=== PATIENT | female | born 1955 | race Caucasian/White ===

== ENCOUNTER 2018-04-17 16:31 | Emergency (ER) | payer OTHER ==
--- NOTE | 2018-04-17 17:54 | ED ---
Lower Extremity - HPI Summary HPI Summary: 62-year-old female presents with left ankle injury today. States she was hiking and she tripped. She has an abrasion on her face into her right knee. Pain mostly is in her left ankle. She denies chest pain or shortness breath. Fall was mechanical fall. She is not on blood thinners. No nausea and no vomiting. No loss conscious. No loose teeth. No neck pain or back pain. No chest pain or shortness breath. She denies any other injury. She is still able ambulate on the ankle. She has no medical conditions. - History of Current Complaint Chief Complaint: EDExtremityLower Stated Complaint: ANKLE PAIN Time Seen by Provider: 04/17/18 17:35 Pain Intensity: 6 - Allergies/Home Medications Allergies/Adverse Reactions: Allergies Allergy/AdvReac Type Severity Reaction Status Date / Time No Known Allergies Allergy Verified 04/17/18 16:38 PMH/Surg Hx/FS Hx/Imm Hx Endocrine/Hematology History: Denies: Hx Anticoagulant Therapy Cardiovascular History: Denies: Hx Myocardial Infarction Infectious Disease History: No Infectious Disease History: Denies: Traveled Outside the [place] in Last 30 Days - Family History Known Family History: Negative: Blood Disorder - Social History Alcohol Use: Occasionally Substance Use Type: Reports: None Review of Systems Negative: Fever Negative: Chest Pain Negative: Shortness Of Breath Positive: Myalgia - left ankle pain Positive: Other - abrasion All Other Systems Reviewed And Are Negative: Yes Physical Exam Triage Information Reviewed: Yes Vital Signs On Initial Exam: Initial Vitals Temp Pulse Resp BP Pulse Ox 98.1 F 95 16 122/85 96 04/17/18 16:36 04/17/18 16:36 04/17/18 16:36 04/17/18 16:36 04/17/18 16:36 Vital Signs Reviewed: Yes Appearance: Positive: Well-Appearing Skin: Positive: Warm, Dry, Other - Abrasions to chin, left knee Head/Face: Positive: Normal Head/Face Inspection, Other - No step off, raccoon eyes, durbin sign Eyes: Positive: Normal, EOMI, ISSAC, Conjunctiva Clear ENT: Positive: Normal ENT inspection, Pharynx normal, TMs normal Respiratory/Lung Sounds: Positive: Clear to Auscultation, Breath Sounds Present Cardiovascular: Positive: Normal, RRR Musculoskeletal: Positive: Strength/ROM Intact - left knee and foot, right knee , Limited @ - left ankle, Other - Good pulses, cap refill less than 2 seconds, tenderness over lateral malleolus of left ankle Neurological: Positive: Sensory/Motor Intact, Alert, Oriented to Person Place, Time, CN Intact II-III Psychiatric: Positive: Normal - [place] Coma Scale Best Eye Response: 4 - Spontaneous Best Motor Response: 6 - Obeys Commands Best Verbal Response: 5 - Oriented Coma Scale Total: 15 Diagnostics - Vital Signs Vital Signs Temp Pulse Resp BP Pulse Ox 04/17/18 16:36 98.1 F 95 16 122/85 96 - Laboratory Lab Statement: Any lab studies that have been ordered have been reviewed, and results considered in the medical decision making process. - Radiology ankle Xray Interpretation: Positive (See Comments) - IMPRESSION: LATERAL SOFT TISSUE SWELLING EVIDENCE OF REMOTE AVULSION INJURIES. IT WOULD BE DIFFICULT TO EXCLUDE A TINY ACUTE INJURY, HOWEVER, GIVEN THE PRESENCE OF THE OTHER OSSIFIC DENSITIES. Radiology Interpretation Completed By: Radiologist Lower Extremity Course/Dx - Course Course Of Treatment: 62-year-old female presents with left ankle injury today. States she was hiking and she tripped. She has an abrasion on her face into her right knee. Pain mostly is in her left ankle. She denies chest pain or shortness breath. Fall was mechanical fall. She is not on blood thinners. No nausea and no vomiting. No loss conscious. No loose teeth. No neck pain or back pain. No chest pain or shortness breath. She denies any other injury. She is still able ambulate on the ankle. She has no medical conditions. On exam has abrasion noted to face and right knee. Has edema noted to the lateral aspect of left ankle. Neurovascular intact. X-ray shows soft tissue swelling and possible avulsion injury. Discussed the patient and will use a walking boot. patient understand and agrees with plan. - Diagnoses Differential Diagnosis/HQI/PQRI: Positive: Fracture (Closed), Sprain, Strain Provider Diagnoses: Left ankle injury Discharge - Sign-Out/Discharge Documenting (check all that apply): Patient Departure - Discharge Plan Condition: Good Disposition: HOME Patient Education Materials: Ankle Sprain (ED) Referrals: [facility] [Outside] Additional Instructions: Stay off ankle as much as possible Ice, elevate, use walking boot Ibuprofen or tyenlol every 6 hours for pain keep abrasions clean Follow up with primary if no improvement in a week Return to ED if develop or any new or worsening symptoms - Billing Disposition and Condition Condition: GOOD Disposition: Home
--- NOTE | 2018-04-17 17:58 | RAD ---
INDICATION: Left ankle injury COMPARISON: None TECHNIQUE: AP, lateral, and oblique views were obtained. FINDINGS: There are small multiple small ossific densities about the lateral malleolus. Many or all of these are related to a prior injury as they are rounded and corticated. It is possible that there is a tiny acute avulsion injury, however. There is lateral soft tissue swelling. The ankle mortise is intact. No additional findings. IMPRESSION: LATERAL SOFT TISSUE SWELLING EVIDENCE OF REMOTE AVULSION INJURIES. IT WOULD BE DIFFICULT TO EXCLUDE A TINY ACUTE INJURY, HOWEVER, GIVEN THE PRESENCE OF THE OTHER OSSIFIC DENSITIES.
[2018-04-17 19:20] VITALS: BP 122/82
== END 2018-04-17 18:55 | disposition home or self-care (01) ==
LOC: ED 16:31
DX: S99.912A Unspecified injury of left ankle, initial encounter (principal); S80.211A Abrasion, right knee, initial encounter; S00.81XA Abrasion of other part of head, initial encounter; W01.0XXA Fall on same level from slipping, tripping and stumbling without subsequent striking against object, initial encounter; Y93.01 Activity, walking, marching and hiking; Y92.828 Other wilderness area as the place of occurrence of the external cause
CPT/HCPCS: 99282